=== PATIENT | male | born 1995 | race American Indian/Alaskan Native ===

== ENCOUNTER 2020-07-06 01:55 | Emergency (ER) | payer SELFPAY | END 2020-07-06 02:05 | LOC: ED 01:55 | DX: R52 Pain, unspecified (principal); Z53.21 Procedure and treatment not carried out due to patient leaving prior to being seen by health care provider ==

== ENCOUNTER 2021-04-27 13:21 | Emergency (ER) | payer SELFPAY ==
[2021-04-27] MEDS ORDERED: KETOROLAC 60 MG/2 ML INJ IM ONE (14:44)
--- NOTE | 2021-04-27 14:57 | Emergency Department Report ---
ED General Adult HPI - General Chief complaint: Back Pain/Injury Stated complaint: SCIATICA PAIN/DIZZINESS/MUSCLE ACHE Time Seen by Provider: 04/27/21 14:31 Source: patient Mode of arrival: Ambulatory Limitations: No Limitations - History of Present Illness Initial comments: 26-year-old -[place] male patient presents with complaints of intermitt ent dizziness x1 week. Patient states about 5 months ago he had similar episodes of dizziness that led to him having syncopal episodes. Patient states at that time he was evaluated at [facility] and no cause was found. He denies any headache, fever/chills/sweats, head trauma, numbness/tinglin g/weakness in his limbs, difficulty with speech/ambulation, confusion, memory loss, or vision changes. Patient states he is not dizzy at current and describes the dizziness as feeling as if he is going to pass out. No past medical history per patient. He admits to intermittent shortness of breath, but denies any history of DVT/PE/cancer or recent long travel. Patient states he did have some swelling about 5 days ago on his leg that resolved on its own, however he has had the same intermittent swelling in his legs for months. Patient also complains of intermittent right-sided sciatica x3 months. He denies any injuries or new symptoms. Pain starts in his right buttock and radiates into his right thigh. Tylenol is not helping per patient Severity scale (0 -10): 6 - Related Data Previous Rx's Medication Instructions Recorded Last Taken Type Naproxen 500 mg PO BID PRN #20 tab 04/27/21 Unknown Rx methocarbamoL [Methocarbamol] 750 - 1,500 mg PO TID PRN #30 tab 04/27/21 Unknown Rx Allergies Allergy/AdvReac Type Severity Reaction Status Date / Time No Known Allergies Allergy Unverified 04/27/21 14:24 ED Review of Systems ROS: Stated complaint: SCIATICA PAIN/DIZZINESS/MUSCLE ACHE Other details as noted in HPI Constitutional: denies: chills, diaphoresis, fever, malaise ENT: denies: throat pain Respiratory: see HPI. denies: cough Cardiovascular: denies: chest pain, palpitations Endocrine: denies: excessive sweating Gastrointestinal: denies: abdominal pain, nausea, vomiting Genitourinary: denies: urgency, dysuria, frequency, hematuria Neurological: denies: headache, weakness, numbness, paresthesias Hematological/Lymphatic: denies: swollen glands ED Past Medical Hx - Medications Home Medications: Home Medications Medication Instructions Recorded Confirmed Last Taken Type Naproxen 500 mg PO BID PRN #20 tab 04/27/21 Unknown Rx methocarbamoL [Methocarbamol] 750 - 1,500 mg PO TID PRN #30 tab 04/27/21 Unknown Rx ED Physical Exam - General Limitations: No Limitations General appearance: alert, in no apparent distress, obese - Head Head exam: Present: atraumatic, normocephalic - Eye Eye exam: Present: normal appearance. Absent: scleral icterus - Respiratory Respiratory exam: Absent: respiratory distress - Cardiovascular Cardiovascular Exam: Present: regular rate, normal rhythm - Extremities Exam Extremities exam: Present: full ROM - Back Exam Back exam: Present: full ROM. Absent: vertebral tenderness - Expanded Back Exam Expanded Back exam: Absent: saddle anesthesia Back exam: Sciatic Notch Tenderness: Right, Positive Straight Leg Raise: Right - Neurological Exam Neurological exam: Present: alert, oriented X3, CN II-XII intact, normal gait. Absent: motor sensory deficit - Expanded Neurological Exam Expanded Cerebellar function: Finger to Nose: Normal, Heel to [place]: Normal, Romberg: Normal Sensory exam: Upper Extremity Light Touch: Normal, Lower Extremity Light Touch: Normal Motor strength exam: RUE: 4, LUE: 4, RLE: 4, LLE: 4 Best Eye Response ([place]): (4) open spontaneously Best Motor Response (Des): (6) obeys commands Best Verbal Response (Des): (5) oriented Des Total: 15 - Psychiatric Psychiatric exam: Present: normal affect, normal mood - Skin Skin exam: Present: warm, dry, intact, normal color. Absent: rash ED Course Vital Signs 04/27/21 04/27/21 14:24 17:36 Temperature 98.0 F Pulse Rate 89 Pulse Rate [ 77 Lying] Pulse Rate [ 65 Sitting] Pulse Rate [ 87 Standing] Respiratory 18 Rate Blood Pressure 135/66 [Lying] Blood Pressure 145/82 [Right] Blood Pressure 147/90 [Sitting] Blood Pressure 155/96 [Standing] O2 Sat by Pulse 98 Oximetry ED Medical Decision Making - Lab Data Result diagrams: 04/27/21 15:38 04/27/21 15:38 Lab Results 04/27/21 04/27/21 04/27/21 Range/Units 15:38 15:38 15:38 WBC 3.4 L (4.5-11.0) K/mm3 RBC 4.37 (3.65-5.03) M/mm3 Hgb 14.3 (11.8-15.2) gm/dl Hct 39.6 (35.5-45.6) % MCV 91 (84-94) fl MCH 33 H (28-32) pg MCHC 36 H (32-34) % RDW 14.1 (13.2-15.2) % Plt Count 201 (140-440) K/mm3 [place] % (Auto) Atmospheric Technician Add Manual Diff Complete Total Counted 100 Seg Neutrophils % Atmospheric Technician Seg Neuts % (Manual) 30.0 L (40.0-70.0) % Band Neutrophils % 0 % Lymphocytes % (Manual) 41.0 H (13.4-35.0) % Reactive Lymphs % (Man) 1.0 % Monocytes % (Manual) 19.0 H (0.0-7.3) % Eosinophils % (Manual) 9.0 H (0.0-4.3) % Basophils % (Manual) 0 (0.0-1.8) % Metamyelocytes % 0 % Myelocytes % 0 % Promyelocytes % 0 % Blast Cells % 0 % Nucleated RBC % Not Reportable Seg Neutrophils # Man 1.0 L (1.8-7.7) K/mm3 Band Neutrophils # 0.0 K/mm3 Lymphocytes # (Manual) 1.4 (1.2-5.4) K/mm3 Abs React Lymphs (Man) 0.0 K/mm3 Monocytes # (Manual) 0.6 (0.0-0.8) K/mm3 Eosinophils # (Manual) 0.3 (0.0-0.4) K/mm3 Basophils # (Manual) 0.0 (0.0-0.1) K/mm3 Metamyelocytes # 0.0 K/mm3 Myelocytes # 0.0 K/mm3 Promyelocytes # 0.0 K/mm3 Blast Cells # 0.0 K/mm3 WBC Morphology Not Reportable Hypersegmented Neuts Not Reportable Hyposegmented Neuts Not Reportable Hypogranular Neuts Not Reportable Smudge Cells Not Reportable Toxic Granulation Not Reportable Toxic Vacuolation Not Reportable Dohle Bodies Not Reportable Pelger-Huet Anomaly Not Reportable Braxton Rods Not Reportable Platelet Estimate Consistent w auto Clumped Platelets Not Reportable Plt Clumps, EDTA Not Reportable Large Platelets Not Reportable Giant Platelets Not Reportable Platelet Satelliting Not Reportable Plt Morphology Comment Not Reportable RBC Morphology Normal Dimorphic RBCs Not Reportable Polychromasia Not Reportable Hypochromasia Not Reportable Poikilocytosis Not Reportable Anisocytosis Not Reportable Microcytosis Not Reportable Macrocytosis Not Reportable Spherocytes Not Reportable Pappenheimer Bodies Not Reportable Sickle Cells Not Reportable Target Cells Not Reportable Tear Drop Cells Not Reportable Ovalocytes Not Reportable Helmet Cells Not Reportable [place] Bodies Not Reportable Reese Rings Not Reportable Red Cells Not Reportable Bite Cells Not Reportable Crenated Cell Not Reportable Elliptocytes Not Reportable Acanthocytes (Spur) Not Reportable Rouleaux Not Reportable Hemoglobin C Crystals Not Reportable Schistocytes Not Reportable Malaria parasites Not Reportable Simon Bodies Not Reportable Hem Pathologist Commnt No D-Dimer 143.69 (0-234) ng/mlDDU Sodium 139 (137-145) mmol/L Potassium 4.0 (3.6-5.0) mmol/L Chloride 103.7 (98-107) mmol/L Carbon Dioxide 24 (22-30) mmol/L Anion Gap 15 mmol/L BUN 13 (9-20) mg/dL Creatinine 0.7 L (0.8-1.3) mg/dL Estimated GFR > 60 ml/min BUN/Creatinine Ratio 19 % Glucose 93 (75-100) mg/dL Calcium 9.0 (8.4-10.2) mg/dL Total Bilirubin 0.60 (0.1-1.2) mg/dL AST 46 H (5-40) units/L ALT 36 (7-56) units/L Alkaline Phosphatase 74 (35-129) units/L Troponin T < 0.010 (0.00-0.029) ng/mL Total Protein 7.1 (6.3-8.2) g/dL Albumin 4.3 (3.9-5) g/dL Albumin/Globulin Ratio 1.5 % - EKG Data EKG shows normal: sinus rhythm Rate: normal - Medical Decision Making 26-year-old -[place] male patient presents with complaints of intermi ttent dizziness x1 week. Patient states about 5 months ago he had similar episodes of dizziness that led to him having syncopal episodes. Patient states at that time he was evaluated at [facility] and no cause was found. He denies any headache, fever/chills/sweats, head trauma, numbness/tingl ing/weakness in his limbs, difficulty with speech/ambulation, confusion, memory loss, or vision changes. Patient states he is not dizzy at current and describes the dizziness as feeling as if he is going to pass out. No past medical history per patient. He admits to intermittent shortness of breath, but denies any history of DVT/PE/cancer or recent long travel. Patient states he did have some swelling about 5 days ago on his leg that resolved on its own, however he has had the same intermittent swelling in his legs for months. Patient also complains of intermittent right-sided sciatica x3 months. He denies any injuries or new symptoms. Pain starts in his right buttock and radiates into his right thigh. Tylenol is not helping per patient No acute abnormalities noted on EKG. Neuro exam is normal. Orthostatic vitals are normal. No acute abnormalities are noted on CBC or CMP or troponin. Dimer is negative. Sciatic pain improved with meds given. He is well-appearing, his vitals are within normal limits, he is stable for discharge home. Recommend increase water intake and follow-up with primary care within 3 to 5 days. Discussed in detail signs and symptoms that should prompt immediate return to the ED with patient who verbalizes understanding Critical care attestation.: If time is entered above; I have spent that time in minutes in the direct care of this critically ill patient, excluding procedure time. ED Disposition Clinical Impression: Right sided sciatica, Dizziness Disposition: 01 HOME / SELF CARE / HOMELESS Is pt being admited?: No Condition: Stable Instructions: Sciatica, [id number], Dizziness, [id number] Prescriptions: methocarbamoL [Methocarbamol] 750 - 1,500 mg PO TID PRN #30 tab PRN Reason: muscle spasm/tightness Naproxen 500 mg PO BID PRN #20 tab PRN Reason: pain Referrals: [facility] [Provider Group] - 3-5 Days [facility] [Outside] - 3-5 Days Forms: Work/School Release Form(ED)
--- NOTE | 2021-04-27 15:29 | XRay Report ---
CHEST 2 VIEWS INDICATION / CLINICAL INFORMATION: Shortness of breath. COMPARISON: None available. FINDINGS: SUPPORT DEVICES: None. HEART / MEDIASTINUM: The heart size and pulmonary vasculature are normal. LUNGS / PLEURA: No significant pulmonary or pleural abnormality. No pneumothorax. ADDITIONAL FINDINGS: There is mild partial eventration of the right hemidiaphragm anteromedially. IMPRESSION: No acute findings. Signer Name: Gilbert Callahan MD Signed: 04/27/2021 3:24 PM Workstation Name: [email or web address] [id number]
[2021-04-27 15:53] LABS: Mean Corpuscular HGB Conc 36 % (32-34); Mean Corpuscular Volume 91 fl (84-94); Platelet Count 201 K/mm3 (140-440); Red Blood Count 4.37 M/mm3 (3.65-5.03); Red Cell Distribution Width 14.1 % (13.2-15.2)
[2021-04-27 15:54] LABS: Hematocrit 39.6 % (35.5-45.6); Hemoglobin 14.3 gm/dl (11.8-15.2)
[2021-04-27 16:25] LABS: Basophils % (Manual) 0 % (0.0-1.8); Platelet Estimate Consistent w Auto; RBC Morphology Normal; Total Cells Counted 100
[2021-04-27 16:38] LABS: Alanine Aminotransferase 36 units/L (7-56); Albumin 4.3 g/dL (3.9-5); Blood Urea Nitrogen 13 mg/dL (9-20); Hemolysis Index 7
[2021-04-27 16:40] LABS: BUN/Creatinine Ratio 19
[2021-04-27 18:07] VITALS: BP 147/90
--- NOTE | 2021-04-28 19:25 | Electrocardiograph Report ---
[facility] Test Date: 2021-04-27 Test Time: 17:23:34 Pat Name: VITA NEUMANN Department: Room: Gender: M Product Owner: ELIAS : 1995 Requested By: ALEAH LOVE Order Number: [id number] Reading MD: Star Wright Measurements Intervals [place] Rate: 71 P: 23 [place]: 157 QRS: 34 QRSD: 99 T: 28 QT: 392 QTc: 426 Interpretive Statements Sinus arrhythmia PRWP ST elev, probable normal early repol pattern No previous ECG available for comparison Electronically Signed On 04-28-2021 19:25:51 EDT by Star Wright
== END 2021-04-27 18:08 | disposition home or self-care (01) ==
LOC: ED 13:21
DX: M54.31 Sciatica, right side (principal); R42 Dizziness and giddiness
CPT/HCPCS: 36415; 71046; 80053; 84484; 85007; 85025; 85379; 93005; 96372; 99284; J1885

== ENCOUNTER 2021-10-02 23:33 | Emergency (ER) | payer SELFPAY ==
[2021-10-03] MEDS ORDERED: BUTALB/ACETAMINOPHEN/CAFFEINE TAB PO ONE (04:53)
[2021-10-03] MEDS ORDERED: predniSONE 20 MG TAB PO ONE (04:53)
[2021-10-03] MEDS ORDERED: IBUPROFEN 600 MG TAB PO ONE (04:53)
--- NOTE | 2021-10-03 06:31 | Emergency Department Report ---
- General Chief Complaint: Upper Respiratory Infection Stated Complaint: COUGHING/WEAK Source: patient Mode of arrival: Ambulatory Limitations: No Limitations - History of Present Illness Initial Comments: Patient is a 26-year-old male with a history of morbid obesity and asthma who presents to the ED with complaint of acute onset persistent painful and sinus congestion, persistent dry cough, sore throat, frontal sinus pressure and headache for the last 1 week. Patient also complains of intermittent lightheadedness with nausea. Patient states that other people at home have had similar symptoms. Patient denies dizziness, syncope, chest pain, shortness of breath, vomiting and diarrhea, abdominal pain, neck pain, change in vision, lightheadedness, dysuria, urinary frequency and urgency and hematuria. MD Complaint: cough, rhinorrhea, nasal congestion, sinus pain -: Gradual, week(s) (1) Severity: moderate Severity scale (0 -10): 5 Quality: sharp, aching Consistency: constant Improves With: nothing Worsens With: nothing Context: sick contacts Associated Symptoms: denies other symptoms, headache, rhinorrhea, nasal congestion, sore throat, cough. denies: chills, myalgias, diaphoresis, chest pain, shortness of breath, abdominal pain, nausea, vomiting, diarrhea, dysuria, rash, confusion, right sweats, epistaxis, hoarseness, ear pain Treatments Prior to Arrival: "cold medicine" - Related Data Previous Rx's Medication Instructions Recorded Last Taken Type Naproxen 500 mg PO BID PRN #20 tab 04/27/21 Unknown Rx methocarbamoL [Methocarbamol] 750 - 1,500 mg PO TID PRN #30 tab 04/27/21 Unknown Rx Albuterol Sulfate [Proair 1 - 2 puff IH Q4H PRN #1 inh 10/03/21 Unknown Rx Respiclick] Amoxicillin/K Clav Tab [Augmentin 1 tab PO Q12HR #20 tab 10/03/21 Unknown Rx 875 mg] Benzonatate [Tessalon Perles] 100 mg PO Q8HR #30 cap 10/03/21 Unknown Rx Cetirizine HCl [Zyrtec 10mg tab] 10 mg PO DAILY #30 tab 10/03/21 Unknown Rx Ibuprofen [Motrin] 800 mg PO Q8HR PRN #30 tablet 10/03/21 Unknown Rx methylPREDNISolone [Medrol 4MG 4 mg PO DAILY #21 tab 10/03/21 Unknown Rx DOSEPAK (21 tabs)] Allergies Allergy/AdvReac Type Severity Reaction Status Date / Time No Known Allergies Allergy Unverified 04/27/21 14:24 ED Review of Systems ROS: Stated complaint: COUGHING/WEAK Other details as noted in HPI Constitutional: denies: chills, fever Eyes: denies: eye pain, eye discharge, vision change ENT: throat pain, congestion. denies: ear pain Respiratory: cough. denies: shortness of breath, wheezing Cardiovascular: denies: chest pain, palpitations Endocrine: no symptoms reported Gastrointestinal: denies: abdominal pain, nausea, diarrhea Genitourinary: denies: urgency, dysuria Musculoskeletal: denies: back pain, joint swelling, arthralgia Skin: denies: rash, lesions Neurological: headache. denies: weakness, paresthesias Psychiatric: denies: anxiety, depression Hematological/Lymphatic: denies: easy bleeding, easy bruising ED Past Medical Hx - Past Medical History Previous Medical History?: Yes Hx Asthma: Yes - Medications Home Medications: Home Medications Medication Instructions Recorded Confirmed Last Taken Type Naproxen 500 mg PO BID PRN #20 tab 04/27/21 Unknown Rx methocarbamoL [Methocarbamol] 750 - 1,500 mg PO TID PRN #30 tab 04/27/21 Unknown Rx Albuterol Sulfate [Proair 1 - 2 puff IH Q4H PRN #1 inh 10/03/21 Unknown Rx Respiclick] Amoxicillin/K Clav Tab [Augmentin 1 tab PO Q12HR #20 tab 10/03/21 Unknown Rx 875 mg] Benzonatate [Tessalon Perles] 100 mg PO Q8HR #30 cap 10/03/21 Unknown Rx Cetirizine HCl [Zyrtec 10mg tab] 10 mg PO DAILY #30 tab 10/03/21 Unknown Rx Ibuprofen [Motrin] 800 mg PO Q8HR PRN #30 tablet 10/03/21 Unknown Rx methylPREDNISolone [Medrol 4MG 4 mg PO DAILY #21 tab 10/03/21 Unknown Rx DOSEPAK (21 tabs)] ED Physical Exam - General Limitations: No Limitations General appearance: alert, in no apparent distress - Head Head exam: Present: atraumatic, normocephalic, normal inspection - Eye Eye exam: Present: normal appearance, PERRL, EOMI Pupils: Present: normal accommodation - ENT ENT exam: Present: normal orophraynx, mucous membranes moist, TM's normal bilaterally, normal external ear exam, other (Grossly congested nasal passages; palpable frontal sinus tenderness) - Neck Neck exam: Present: normal inspection, full ROM. Absent: tenderness, lymphadenopathy - Respiratory Respiratory exam: Present: normal lung sounds bilaterally. Absent: respiratory distress, wheezes, rales, rhonchi, chest wall tenderness, accessory muscle use, decreased breath sounds - Cardiovascular Cardiovascular Exam: Present: regular rate, normal rhythm, normal heart sounds. Absent: systolic murmur, diastolic murmur, rubs, gallop - GI/Abdominal GI/Abdominal exam: Present: soft, normal bowel sounds. Absent: tenderness, rebound, hyperactive bowel sounds - Extremities Exam Extremities exam: Present: normal inspection, full ROM, normal capillary refill. Absent: tenderness - Back Exam Back exam: Present: normal inspection, full ROM. Absent: tenderness, CVA tender ness (R), CVA tenderness (L), muscle spasm, paraspinal tenderness, vertebral tenderness - Neurological Exam Neurological exam: Present: alert, oriented X3, CN II-XII intact, normal gait, reflexes normal - Psychiatric Psychiatric exam: Present: normal affect, normal mood - Skin Skin exam: Present: warm, dry, intact, normal color. Absent: rash ED Medical Decision Making - Radiology Data Radiology results: image reviewed Chest x-ray showed no acute cardiopulmonary abnormalities or pneumonitis. - Medical Decision Making This is a 26-year-old male with a history of morbid obesity and asthma who presents to the ED with complaint of acute onset persistent painful and sinus congestion, persistent dry cough, sore throat, frontal sinus pressure and headache for the last 1 week. Patient also complains of intermittent lightheadedness with nausea. Patient states that other people at home have had similar symptoms. In the ED, patient is alert and oriented x3 and is not in any distress. Patient is hemodynamically stable. Patient was treated with oral steroids in the ED. Chest x-ray showed no acute cardiopulmonary abnormalities or pneumonitis. Patient symptoms are likely due to upper respiratory infection consistent with sinusitis and bronchitis. Patient was discharged home on medications and advised to follow-up with his primary care physician in 7 to 10 days for reevaluation or return to the ED immediately if symptoms get worse. - Differential Diagnosis Sinusitis; URI; bronchitis; pneumonia; rhinitis; Critical care attestation.: If time is entered above; I have spent that time in minutes in the direct care of this critically ill patient, excluding procedure time. ED Disposition Clinical Impression: Acute upper respiratory infection Acute frontal sinusitis Qualifiers: Recurrence: non-recurrent Qualified Code(s): J01.10 - Acute frontal sinusitis, unspecified Acute bronchitis Qualifiers: Bronchitis organism: other organism Qualified Code(s): J20.8 - Acute bronchitis due to other specified organisms Disposition: HOME / SELF CARE / HOMELESS Is pt being admited?: No Does the pt Need Aspirin: No Condition: Stable Instructions: Acute Bronchitis (ED), Sinusitis, Adult, [id number], Upper Respiratory Infection, Adult, [id number], Cough, Adult, [id number], Acute Bronchitis, Adult, [id number] Additional Instructions: Chest x-ray showed no acute cardiopulmonary abnormalities or pneumonitis. Therefore take medication with food, drink plenty of fluids, follow-up with your primary care physician in 7 to 10 days for reevaluation. Return to the ED imme diately if symptoms get worse. Prescriptions: Amoxicillin/K Clav Tab [Augmentin 875 mg] 1 tab PO Q12HR #20 tab methylPREDNISolone [Medrol 4MG DOSEPAK (21 tabs)] 4 mg PO DAILY #21 tab Ibuprofen [Motrin] 800 mg PO Q8HR PRN #30 tablet PRN Reason: Pain , Severe (7-10) Albuterol Sulfate [Proair Respiclick] 1 - 2 puff IH Q4H PRN #1 inh PRN Reason: Shortness Of Breath Benzonatate [Tessalon Perles] 100 mg PO Q8HR #30 cap Cetirizine HCl [Zyrtec 10mg tab] 10 mg PO DAILY #30 tab Referrals: [facility] [Provider Group] - 7-10 days Forms: Work/School Release Form(ED) Time of Disposition: 06:32 Print Language: ARMENIAN
--- NOTE | 2021-10-03 06:52 | XRay Report ---
CHEST 2 VIEWS INDICATION / CLINICAL INFORMATION: cough. COMPARISON: Chest x-ray 04/27/2021 FINDINGS: SUPPORT DEVICES: None. HEART / MEDIASTINUM: Heart size and mediastinal contour appear within normal limits. LUNGS / PLEURA: No significant pulmonary or pleural abnormality. No pneumothorax. BONES: No significant osseous abnormality. ADDITIONAL FINDINGS: No significant additional findings. IMPRESSION: 1. No active cardiopulmonary disease. Signer Name: Galo Fairchild II, MD Signed: 10/03/2021 6:47 AM Workstation Name: [id number]
[2021-10-03 07:00] VITALS: BP 127/79
== END 2021-10-03 07:00 | disposition home or self-care (01) ==
LOC: ED 23:33
DX: R05.9 Cough, unspecified (principal); J06.9 Acute upper respiratory infection, unspecified; J01.10 Acute frontal sinusitis, unspecified; J20.8 Acute bronchitis due to other specified organisms; J34.89 Other specified disorders of nose and nasal sinuses
CPT/HCPCS: 71046; 99283